=== PATIENT | female | born 1995 | race Two or more races ===

== ENCOUNTER 2024-08-23 16:23 | Emergency (ER) | payer MEDICAID, SELFPAY ==
[2024-08-23 16:24] VITALS: BMI 28.7
[2024-08-23 16:30] VITALS: BP 121/79; PULSE 91; RESP 19; TEMP 37; O2SAT 98
--- NOTE | 2024-08-23 16:36 | XR_ITS ---
Examination: Foot, left, 3 views Technique: AP, oblique, lateral views foot, 3 views Date and time of exam: August 23, 2024 1708 hrs. Indications: Injury to the foot today, foot pain Findings: No acute fracture No dislocation No foreign body Impression: No acute fracture
--- NOTE | 2024-08-23 17:48 | EDNOTE_ITS ---
Lower Extremity Injury RME/HPI General Chief Complaint: Ankle/Foot Injury Stated Complaint: LEFT FOOT INJURY Time Seen by Provider: 08/23/24 16:30 Arrival date/time: 08/23/24 16:23 29-year-old female presents to the emergency department complains of left foot pain patient injured herself today after twisting her left foot patient reports no other injuries Limitations: no limitations Related Data Previous Rx's ?Medication ?Instructions ?Recorded docusate sodium 100 mg capsule 100 mg PO BID #40 caps 09/13/22 hydrocodone 5 mg-acetaminophen 325 1 tab PO Q8HR PRN pain (scale 09/13/22 mg tablet score 7-10) #15 tabs ibuprofen 600 mg tablet 600 mg PO Q8H PRN pain (scale 09/13/22 score 4-6) #15 tabs ibuprofen 600 mg tablet 600 mg PO Q6H #30 tabs 08/23/24 Allergies Allergy/AdvReac Type Severity Reaction Status Date / Time No Known Allergies Allergy Verified 08/23/24 16:25 Review of Systems Review of Systems Systems Reviewed: All systems reviewed, normal except as documented Constitutional Constitutional: Reports system reviewed and no additional complaints, except as documented, Denies fever(s) and Denies headache(s) Eyes Eyes: Reports system reviewed and no additional complaints, except as documented and Denies blurry vision ENT Ears, Nose, Mouth, and Throat: Reports system reviewed and no additional complaints, except as documented, Denies headache(s), Denies nasal congestion and Denies nasal discharge Cardiovascular Cardiovascular: Reports system reviewed and no additional complaints, except as documented, Denies chest pain and Denies dyspnea Respiratory Respiratory: Reports system reviewed and no additional complaints, except as documented, Denies chest congestion, Denies cough and Denies dyspnea Gastrointestinal Gastrointestinal: Reports system reviewed and no additional complaints, except as documented and Denies abdominal pain Musculoskeletal Musculoskeletal: Reports system reviewed and no additional complaints, except as documented, Reports abnormal gait, Reports arthralgias (Left foot pain and swelling), Denies deformity, Denies joint swelling, Denies numbness, Reports stiffness and Denies tingling Integumentary/Breasts Skin/Breast: Reports system reviewed and no additional complaints, except as documented and Denies rash Neurologic Neurologic: Reports system reviewed and no additional complaints, except as documented, Reports as per HPI, Reports abnormal gait, Denies headache(s), Denies numbness and Denies tingling Past Medical History Past Medical History NEUROLOGIC: Negative Neurological Disorders CARDIAC: Negative Cardiac Disorders ED Exam General Limitations: Present no limitations General appearance: Present alert and in no apparent distress Head Head exam: Present atraumatic Eye Eye exam: Present normal appearance, PERRL and EOMI ENT ENT exam: Present normal exam, normal oropharynx and mucous membranes moist Neck Neck exam: Present normal inspection, full ROM and trachea midline Chest Chest inspection: Present normal inspection and symmetric chest wall rise Respiratory Respiratory exam: Present normal lung sounds bilaterally Cardiovascular Cardiovascular exam: Present regular rate, normal rhythm and normal heart sounds Abdominal Exam Abdominal exam: Present soft and normal bowel sounds Extremities Exam Extremities exam: Present full ROM, tenderness (Pain left foot), normal capillary refill and joint swelling; Absent pedal edema or calf tenderness Back Exam Back exam: Present normal inspection and full ROM Neurological Exam Neurological exam: Present alert, oriented X3 and CN II-XII intact Psychiatric Psychiatric exam: Present normal affect and normal mood Skin Skin exam: Present warm, dry, intact and normal color Course Quality Measures none Orders Category Date Time Status Crutches .NOW Care 08/23/24 17:49 Active tyrone wrap [Splint / Immobilizer] STAT Care 08/23/24 17:49 Active XR foot comp LT min 3V Stat Exams 08/23/24 16:36 Completed Vital Signs Vital signs: Vital Signs Temperature 98.6 F 08/23/24 16:30 Pulse Rate 91 08/23/24 16:30 Respiratory Rate 19 08/23/24 16:30 Blood Pressure 121/79 08/23/24 16:30 Pulse Oximetry (%) 98 08/23/24 16:30 Oxygen Delivery Method Room Air 08/23/24 16:30 O2 saturation 98% room air within normal limits Extremity Injury, Lower MDM Narrative MDM Narrative:: 29-year-old female presents to the emergency department complains of left foot pain patient injured herself today after twisting her left foot patient reports no other injuries X-ray of the left foot obtained no acute fracture dislocation noted Patient placed in [place] wrap and given crutches Explained to the patient she should remain nonweightbearing should pain persist or worsen to have MRI on an outpatient basis Patient data External records reviewed:: [facility] previous records Clinical information provided by:: patient Social determinants that could affect healthcare access:: none Patient has the following chronic illnesses:: None How is presenting disease/condition affected by chronic disease/condition?: no chronic disease Evaluation data The following diagnostics were reviewed and interpreted by me:: radiology exam(s) Lab and/or radiology exams considered but not ordered:: Radiology obtained Interpretation Summary: Reviewed by me Medications / Prescriptions Medications or Prescriptions considered but not ordered:: Given Medication administrations:: Given Consultations Consultation(s) initiated? (list below): No Diagnosis Extremity Injury, Lower Differential Diagnosis: other (Foot sprain, foot fracture) Most likely diagnosis given after review of the tests above:: Foot sprain Admission Indicated Admission indicated?: not indicated Admission Request Was there a request for admission?: No Disposition Plan Disposition Plan: Discharge Discharge Attestation Discharge Attestation: The patient and all family members were given an opportunity to ask questions and understood the discharge instructions. Discharge instructions specifically effects, indications for sooner follow up or return to the emergency department, and the expected course of current diagnosis. Patient condition: Stable Discharge Plan Plan Patient Disposition: HOME (Self Care) Disposition Comment: Stable Prescriptions/Referrals Prescriptions/Med Rec: New ibuprofen 600 mg tablet 600 mg PO Q6H Qty: 30 0RF No Action hydrocodone-acetaminophen 5-325 mg Tablet 1 tab PO Q8HR MDD 3 PRN (Reason: pain (scale score 7-10)) Qty: 15 0RF docusate sodium 100 mg Capsule 100 mg PO BID Qty: 40 0RF ibuprofen 600 mg tablet 600 mg PO Q8H PRN (Reason: pain (scale score 4-6)) Qty: 15 0RF Referrals: Yasir Coronado MD [Primary Care Provider] - 08/24/24 Problem List Clinical Impression: Sprain of foot, left Patient/Caregiver Discharge Instructions Education Materials: ED Foot Sprain Additional Instructions: Please follow up with your primary care doctor in the next 24-48hrs for any worsening symptoms return here immediately Print Language: Vietnamese Stand Alone Forms: Jessi Award Info., Work/School Release, Patient Portal Info Letter PA/RUI Supervising Physician PA/RIU Supervising Physician: Dr. Maloney
== END 2024-08-23 18:00 | disposition home or self-care (01) ==
PROVIDERS: Emergency Provider Emergency Medicine; PCP Family Medicine
DX: S93.602A Unspecified sprain of left foot, initial encounter (principal); X50.1XXA Overexertion from prolonged static or awkward postures, initial encounter
CPT/HCPCS: 73630; 99283

== ENCOUNTER 2024-12-23 17:45 | Emergency (ER) | payer MEDICAID, SELFPAY ==
[2024-12-23 18:37] VITALS: BP 126/73; PULSE 108; RESP 18; TEMP 37.1; O2SAT 97; BMI 30.2
--- NOTE | 2024-12-23 19:04 | EKG_ITS ---
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
--- NOTE | 2024-12-23 20:01 | EDNOTE_ITS ---
Upper Respiratory Inf. RME/HPI General Chief Complaint: Flu Like Symptoms Stated Complaint: CHEST PAIN X FEW DAYS FROM COUGH BODY ACHES Time Seen by Provider: 12/23/24 19:04 Arrival date/time: 12/23/24 17:45 29F with no significant PMH presents to ED with several days of cough and CP with cough, as well as body aches. Limitations: no limitations Related Data Previous Rx's ?Medication ?Instructions ?Recorded docusate sodium 100 mg capsule 100 mg PO BID #40 caps 09/13/22 hydrocodone 5 mg-acetaminophen 325 1 tab PO Q8HR PRN p ain (scale 09/13/22 mg tablet score 7-10) #15 tabs ibuprofen 600 mg tablet 600 mg PO Q8H PRN pain (scal e 09/13/22 score 4-6) #15 tabs ibuprofen 600 mg tablet 600 mg PO Q6H #30 tabs 08/23 Allergies Allergy/AdvReac Type Severity Reaction Status Date / Time No Known Allergies Allergy Verified 12/23/24 17:47 Review of Systems Review of Systems Systems Reviewed: All systems reviewed, normal except as documented Constitutional Constitutional: Reports system reviewed and no additional complaints, except as documented, Reports as per HPI, Reports body ache(s), Denies fever(s) and Denies headache(s) ENT Ears, Nose, Mouth, and Throat: Denies disequilibrium and Denies headache(s) Cardiovascular Cardiovascular: Reports system reviewed and no additional complaints, except as documented, Reports as per HPI, Reports chest pain and Denies dyspnea Respiratory Respiratory: Reports system reviewed and no additional complaints, except as documented, Reports as per HPI, Reports cough and Denies dyspnea Gastrointestinal Gastrointestinal: Reports system reviewed and no additional complaints, except as documented, Denies abdominal pain, Denies nausea and Denies vomiting Neurologic Neurologic: Reports system reviewed and no additional complaints, except as documented, Denies confusion, Denies disequilibrium and Denies headache(s) Psychiatric Psychiatric: Denies confusion Past Medical History Past Medical History NEUROLOGIC: Negative Neurological Disorders or Seizures CARDIAC: Negative Cardiac Disorders or Congestive Heart Failure RESPIRATORY: Negative Chronic Obstructive Pulmonary Disease (COPD) or Asthma GASTROINTESTINAL: Negative Gastrointestinal Disorders GENITOURINARY: Negative Genitourinary Disorders or Renal Disease REPRODUCTIVE: Negative Pelvic Inflammatory Disease MUSCULOSKELETAL: Negative Musculoskeletal Disorders ENDOCRINE: Negative Endocrine Disorders, Diabetes Mellitus Type 1 or Diabetes Mellitus Type 2 HEMATOLOGIC: Negative Blood Disorders or Sickle Cell Disease OTHER HISTORY: Negative Autoimmune Disease, Blood Transfusions, Anesthesia Reactions, Organ Transplant, MRSA, VRSA, Vancomycin-Resistant Enterococci, Clostridium Difficile or Cancer Family History FAMILY HISTORY: Negative Family Psychiatric Problems, Family Respiratory Disorders, Family Cardiac Disorders, Family Gastrointestinal Problems, Family Cancer, Family Surgery or Family Anesthesia Reaction Surgical History SURGICAL: Negative Endocrine Surgery, Ear Surgery, Nephrectomy, Joint Replacement, Neurologic Surgery, Section, Vasectomy or Organ Transplant Social History SMOKING STATUS: Never smoker SUBSTANCE USE: does not use ED Exam General Limitations: Present no limitations General appearance: Present alert and in no apparent distress Head Head exam: Present atraumatic Eye Eye exam: Present normal appearance, PERRL and EOMI ENT ENT exam: Present normal exam, normal oropharynx and mucous membranes moist Neck Neck exam: Present normal inspection, full ROM and trachea midline Chest Chest inspection: Present normal inspection and symmetric chest wall rise Respiratory Respiratory exam: Present normal lung sounds bilaterally Cardiovascular Cardiovascular exam: Present regular rate, normal rhythm and normal heart sounds Abdominal Exam Abdominal exam: Present soft and normal bowel sounds Extremities Exam Extremities exam: Present normal inspection and full ROM Back Exam Back exam: Present normal inspection and full ROM Neurological Exam Neurological exam: Present alert, oriented X3 and CN II-XII intact Psychiatric Psychiatric exam: Present normal affect and normal mood Skin Skin exam: Present warm, dry, intact and normal color Course Quality Measures none Orders Category Date Time Status Bedside Influenza A&B Antigen Test NOW Care 12/23/24 18:51 Completed EKG (ED ONLY) *Do not use* NOW Care 12/23/24 19:04 Completed EKG (ED Only) Stat Exams 12/23/24 19:04 Draft Vital Signs Vital signs: Vital Signs Temperature 98.8 F 12/23/24 18:37 Pulse Rate 108 H 12/23/24 18:37 Respiratory Rate 18 12/23/24 18:37 Blood Pressure 126/73 12/23/24 18:37 Pulse Oximetry (%) 97 12/23/24 18:37 Oxygen Delivery Method Room Air 12/23/24 18:37 O2 at 97% on RA and WNLs Upper Respiratory Infection MDM Narrative MDM Narrative:: 29F with no significant PMH presents to ED with several days of cough and CP with cough, as well as body aches. Physical exam reveals clear ENT and lungs. Normal WOB. Patient is afebrile, calm, and alert. EKG is sinus tach of 105. Swabs neg. Likely viral URI. Patient data External records reviewed:: [facility] previous records Clinical information provided by:: patient Social determinants that could affect healthcare access:: none Patient has the following chronic illnesses:: none How is presenting disease/condition affected by chronic disease/condition?: no chronic disease Evaluation data The following diagnostics were reviewed and interpreted by me:: lab results and EKG tracing(s) Lab and/or radiology exams considered but not ordered:: ordered Interpretation Summary: above Medications / Prescriptions Medications or Prescriptions considered but not ordered:: not ordered Medication administrations:: n/a Consultations Consultation(s) initiated? (list below): No Diagnosis Upper Respiratory Differential Diagnosis: upper respiratory infection, croup, otitis media, sinusitis, viral infection, bronchitis, influenza and pharyngitis Most likely diagnosis given after review of the tests above:: URI Admission Indicated Admission indicated?: not indicated Admission Request Was there a request for admission?: No Disposition Plan Disposition Plan: Discharge Discharge Attestation Discharge Attestation: The patient and all family members were given an opportunity to ask questions and understood the discharge instructions. Discharge instructions specifically effects, indications for sooner follow up or return to the emergency department, and the expected course of current diagnosis. Patient condition: Stable Discharge Plan Plan Patient Disposition: HOME (Self Care) Disposition Comment: Stable Prescriptions/Referrals Prescriptions/Med Rec: No Action hydrocodone-acetaminophen 5-325 mg Tablet 1 tab PO Q8HR MDD 3 PRN (Reason: pain (scale score 7-10)) Qty: 15 0RF docusate sodium 100 mg Capsule 100 mg PO BID Qty: 40 0RF ibuprofen 600 mg tablet 600 mg PO Q8H PRN (Reason: pain (scale score 4-6)) Qty: 15 0RF ibuprofen 600 mg tablet 600 mg PO Q6H Qty: 30 0RF Problem List Clinical Impression: Upper respiratory infection Patient/Caregiver Discharge Instructions Education Materials: ED URI, Viral, No Abx (Adult) Additional Instructions: Please follow-up with PCP within 24-48 hours and return immediately if symptoms worsen. Ibuprofen/Tylenol can be used simultaneously for greater fever/pain control. Benadryl is good for cough, congestion, and sleep. Print Language: Kosovan Stand Alone Forms: Patient Portal Info Letter ALLAN/RUI Supervising Physician PA/NEWSPERSON Supervising Physician: Dr. Maloney
== END 2024-12-23 19:33 | disposition home or self-care (01) ==
LOC: SERX 19:22
PROVIDERS: Emergency Provider Emergency Medicine
DX: J06.9 Acute upper respiratory infection, unspecified (principal)
CPT/HCPCS: 87400; 93005; 99283